=== PATIENT | female | born 1945 | race Hispanic/Latino ===

== ENCOUNTER 2023-02-18 00:55 | Inpatient (IN) | payer MEDICARE, OTHER ==
[2023-02-18] MEDS ORDERED: niCARdipine 25 MG/10 ML SDV ONE (01:28)
[2023-02-18 01:42] LABS: Bilirubin Neg (Negative); Blood, Urine Negative (Negative); Clarity Clear (Clear); Glucose, Urine (Dipstick) Normal (Negative); Ketone, Urine Negative (Negative); Leukocyte Negative (Negative); Nitrite Negative (Negative); Protein, Urine (Dipstick) Negative (Neg-Trace); Urobilinogen Normal mg/dL (Less than 2); pH, Urine 6.5 (5.0-9.0)
[2023-02-18] MEDS ORDERED: hydrALAZINE 20 MG/ML VIAL ONE (02:03)
[2023-02-18 02:20] LABS: #Basophils 0.1 10x3/uL (0.0-0.2); #Eosinphils 0.2 10x3/uL (0.0-0.5); #Monocytes 0.5 10x3/uL (0.0-1.1); #Neutrophils 2.7 10x3/uL (1.5-8.4); %Eosinophils 2.8 % (0.0-6.0); %Lymphocytes 39.5 % (18.0-47.0); %Monocytes 9.2 % (0.0-10.0); %Neutrophils 47.3 % (40.0-75.0); Hemoglobin 11.3 g/dL (12.0-15.5); Mean Corpuscular HGB CONC 32.8 g/dL (32.0-36.0); Mean Corpuscular Hemoglobin 29.3 pg (27.0-33.0); Mean Corpuscular Volume 89.4 fl (81.6-98.3); Mean Platelet Volume 10.5 fl (7.4-10.4); Platelet Count 287 10x3/uL (150-450); RBC Distribution Width 12.9 % (11.5-14.5); Red Blood Cell (RBC) Count 3.86 10x6/uL (3.90-5.03); White Blood Cell (WBC) Count 5.8 10x3/uL (3.5-10.5)
[2023-02-18 02:32] LABS: ALT (SGPT) 15 U/L (8-55); AST (SGOT) 17 U/L (5-34); Albumin 4.3 g/dL (3.4-4.8); Alkaline Phosphatase 77 U/L (40-110); Anion Gap 14 mmol/L (10-20); BUN (Urea Nitrogen) 22 mg/dL (9.8-20.1); Bilirubin, Total 0.3 mg/dL (0.2-1.2); Calc. Creatinine Clearance 0 mL/min (70-130); Calcium 9.8 mg/dL (7.8-10.44); Carbon Dioxide 25 mmol/L (23-31); Chloride 106 mmol/L (98-107); Estimated GFR 69; Globulin 3.2 g/dL (2.4-3.5); Glucose 111 mg/dL (83-110); Magnesium 2.1 mg/dL (1.6-2.6); Potassium 4.2 mmol/L (3.5-5.1); Protein, Total 7.5 g/dL (5.8-8.1); Sodium 141 mmol/L (136-145)
[2023-02-18 02:33] LABS: Acetaminophen Less than 10.0 mcg/mL (10.0-30.0); Alcohol Less than 10 mg/dL (Less than 10); Salicylate Less than 8.0 mg/dL (15.0-30.0)
[2023-02-18 02:56] LABS: CKMB 1.5 ng/mL (0-6.6)
[2023-02-18] MEDS ORDERED: Zolpidem Tartrate 5 MG TAB PO PRN (03:37)
[2023-02-18] MEDS ORDERED: Acetaminophen 325 MG TAB PO PRN (03:37)
[2023-02-18] MEDS ORDERED: Calcium Carbonate 500 MG ChewTAB PO PRN (03:37)
[2023-02-18] MEDS ORDERED: Ondansetron PF 4 MG/2 ML Vial IVP PRN (03:37)
[2023-02-18] MEDS ORDERED: Senokot S 8.6-50 MG TAB PO PRN ×2 (03:37→10:00)
[2023-02-18] MEDS ORDERED: Metoprolol Tartrate 25 MG TAB ONE (04:08)
[2023-02-18] MEDS ORDERED: Lactated Ringer's 500 ML IV SCH (04:30)
[2023-02-18] MEDS ORDERED: Metoprolol Tartrate 25 MG TAB PO SCH ×2 (04:30→09:00)
[2023-02-18 06:35] LABS: Cardiac Risk 4.2 (Less than 4.5)
[2023-02-18 06:48] LABS: CKMB 1.7 ng/mL (0-6.6)
[2023-02-18] MEDS ORDERED: Aspirin Chewable 81 MG TAB ONE (08:16)
[2023-02-18] MEDS ORDERED: Famotidine 20 MG TAB ONE (08:17)
[2023-02-18] MEDS ORDERED: Losartan 25 MG TAB ONE (08:18)
[2023-02-18] MEDS: Famotidine 20 MG TAB PO SCH ×2 (09:00→21:40)
[2023-02-18] MEDS ORDERED: Aspirin 81 mg Enteric Coated Tablet PO SCH (09:00)
[2023-02-18] MEDS: Losartan 25 MG TAB PO SCH (09:00)
[2023-02-18] MEDS ORDERED: hydrALAZINE 25 MG TAB PO PRN (09:45)
[2023-02-18 10:58] LABS: CKMB 1.7 ng/mL (0-6.6)
[2023-02-18 12:43] LABS: Hemoglobin A1c 5.6 % (4.0-6.0)
[2023-02-18 16:37] VITALS: BMI 27.8
[2023-02-18] MEDS: Atorvastatin Calcium 40 MG TAB PO SCH (21:41)
[2023-02-19] MEDS: Losartan 25 MG TAB PO SCH (09:12)
[2023-02-19] MEDS: Famotidine 20 MG TAB PO SCH ×2 (09:12→20:48)
[2023-02-19] MEDS: Aspirin 325 mg Enteric Coated Tablet PO SCH (09:12)
[2023-02-19] MEDS: levETIRAcetam 500 MG TAB PO SCH ×2 (14:40→17:29)
[2023-02-19] MEDS ORDERED: levETIRAcetam 500 MG TAB PO SCH (18:00)
[2023-02-19] MEDS: Atorvastatin Calcium 40 MG TAB PO SCH (20:48)
[2023-02-19] MEDS: Metoprolol Tartrate 25 MG TAB PO SCH (20:48)
[2023-02-20] MEDS ORDERED: levETIRAcetam 500 MG TAB PO SCH (09:00)
[2023-02-20] MEDS: Metoprolol Tartrate 25 MG TAB PO SCH (09:17)
[2023-02-20] MEDS: Losartan 25 MG TAB PO SCH (09:17)
[2023-02-20] MEDS: Aspirin 325 mg Enteric Coated Tablet PO SCH (09:18)
[2023-02-20] MEDS: Famotidine 20 MG TAB PO SCH (09:18)
[2023-02-20 14:10] VITALS: BP 157/69; TEMP 98
== END 2023-02-20 17:30 | disposition home or self-care (01) | DRG 65 ==
LOC: CSHERS 00:55 → INTOOBSV 04:01 → CSHERHOLD 04:01 → CSHTELE 15:44 → OBSVTOIN 17:16
PROVIDERS: ADMIT Student in an Organized Health Care Education/Training Program; ATTEND Internal Medicine
PROC: 4A10X4Z Monitoring of Central Nervous Electrical Activity, External Approach (ICD-10-PCS; principal; 2023-02-20)
DX: I63.9 Cerebral infarction, unspecified (principal); I16.9 Hypertensive crisis, unspecified; E78.5 Hyperlipidemia, unspecified; K21.9 Gastro-esophageal reflux disease without esophagitis; R44.1 Visual hallucinations; R77.8 Other specified abnormalities of plasma proteins; R73.9 Hyperglycemia, unspecified; D64.9 Anemia, unspecified; I16.0 Hypertensive urgency; R56.9 Unspecified convulsions; Z90.710 Acquired absence of both cervix and uterus
CPT/HCPCS: 36415; 70450; 70498; 70551; 80053; 80061; 80307; 81003; 82553; 83036; 83735; 84443; 84484; 85025; 93005; 93306; 93880; 95816; 95819; 95957; 96374; G0378; J0360; J1650; J7120